=== PATIENT | male | born 1935 | race Caucasian/White ===

== ENCOUNTER 2020-01-24 10:41 | Emergency (ER) | payer OTHER ==
[2020-01-24 12:48] LABS: Urine Blood 2+ (NEG); Urine Glucose NEGATIVE (NEG); Urine Protein NEGATIVE (NEG); Urine Specific Gravity 1.015 (1.005-1.030); Urine pH 5.5 (5.0-7.0)
--- NOTE | 2020-01-24 13:05 | ER ---
Nurse's Notes [facility] Name: Greg Newsome Age: 84 yrs Sex: Male : 1935 Arrival Date: 01/24/2020 Time: 10:43 Bed 8 Private MD: Diagnosis: Encounter for fitting and adjustment of urinary device Presentation: 01/23 11:05 Chief complaint: Patient's son or daughter states: His urinary cath keeps falling out. ca1 It fell out twice since last night. He put it back last night, we want it replaced with a new one. I don't know why he has a bag. Has been there for years, I think he can't void on his own. Coronavirus screen: Proceed with normal triage. Patient denies a cough. Patient denies shortness of breath or difficulty breathing. Patient denies measured and/or subjective temperature greater than 100.4F prior to today's visit. Patient denies travel on a cruise ship or to a country the [facility] currently lists as an affected area. Patient denies contact with known and/or suspected case of COVID-19. Ebola Screen: Patient negative for fever greater than or equal to 101.5 degrees Fahrenheit, and additional compatible Ebola Virus Disease symptoms Patient denies exposure to infectious person. Patient denies travel to an Ebola-affected area in the 21 days before illness onset. No symptoms or risks identified at this time. Initial Sepsis Screen: Does the patient meet any 2 criteria? No. Patient's initial sepsis screen is negative. Does the patient have a suspected source of infection? No. Patient's initial sepsis screen is negative. Risk Assessment: Do you want to hurt yourself or someone else? Patient reports no desire to harm self or others. Onset of symptoms was January 24, 2020. 11:05 Method Of Arrival: Ambulatory ca1 11:05 Acuity: SHAD 4 ca1 Triage Assessment: 11:05 General: Appears in no apparent distress. comfortable, Behavior is calm, cooperative. bp Pain: Denies pain. EENT: No deficits noted. Neuro: No deficits noted. Cardiovascular: No deficits noted. Respiratory: No deficits noted. GI: No signs and/or symptoms were reported involving the gastrointestinal system. : Reports [facility] INDWELLING FLANAGAN, UNKNOWN REASON. Derm: No deficits noted. Musculoskeletal: No deficits noted. Historical: - Allergies: 11:12 No Known Allergies; ca1 - Home Meds: 11:12 Flomax 0.4 mg Oral cp24 1 cap once daily [Active]; Aspirin Oral [Active]; Metoprolol ca1 Tartrate Oral [Active]; - PMHx: 11:12 Hypertension; Hyperlipidemia; CAD; ca1 - PSHx: 11:12 Heart stents; Heart Surgery; ca1 - Immunization history:: Adult Immunizations up to date, Pneumococcal vaccine is up to date, Flu vaccine is up to date. - Social history:: Smoking status: Patient denies any tobacco usage or history of. Screenin:15 Abuse screen: Denies threats or abuse. Denies injuries from another. Nutritional bp screening: No deficits noted. Tuberculosis screening: No symptoms or risk factors identified. Fall Risk None identified. Assessment: 11:13 Reassessment: nidia Montiel, . ca1 13:13 Reassessment: PT D/C HOME VIA W/C WITH FAMILY, DX WITH URINARY DEVICE FITTING. bp Vital Signs: 11:05 BP 131 / 76; Pulse 56; Resp 16 S; Temp 97.6(TE); Pulse Ox 100% on R/A; Weight 56.7 kg ca1 (R); Height 5 ft. 6 in. (167.64 cm) (R); 13:12 BP 127 / 75; Pulse 63; Resp 17; Temp 97.8; Pulse Ox 100% ; bp 11:05 Body Mass Index 20.18 (56.70 kg, 167.64 cm) ca1 ED Course: 10:43 Patient arrived in ED. as 11:09 Triage completed. ca1 11:12 Arm band placed on right wrist. ca1 11:15 Deniz Angel, GITA is PHCP. pm1 11:15 Tyson Sorenson MD is Attending Physician. pm1 11:15 Patient has correct armband on for positive identification. Bed in low position. Call bp light in reach. Side rails up X2. 11:35 Christian Byrne, JOY is Primary Nurse. bp 11:50 Coud inserted, using sterile technique, 18 Fr. Returned cloudy urine. To gravity bp drainage. Patient tolerated well. 13:26 No provider procedures requiring assistance completed. Patient did not have IV access bp during this emergency room visit. Administered Medications: No medications were administered Outcome: 13:05 Discharge ordered by . pm1 13:25 Discharged to home via wheelchair, with family. bp 13:25 Condition: stable 13:25 Discharge instructions given to patient, family, Instructed on discharge instructions, follow up and referral plans. Demonstrated understanding of instructions, follow-up care. 13:26 Patient left the ED. bp Signatures: Marisol Dyer Patrick, SENIOR DATABASE ENGINEER SENIOR DATABASE ENGINEER pm1 Christian Byrne, RN RN bp Hermila Lepe RN RN ca1
--- NOTE | 2020-01-24 13:05 | EDPHYS ---
Physician Documentation [facility] Name: Greg Newsome Age: 84 yrs Sex: Male : 1935 Arrival Date: 01/24/2020 Time: 10:43 Bed 8 Private MD: Tyson Brown HPI: 01/23 11:36 This 84 yrs old Male presents to ER via Ambulatory with complaints of Problem pm1 With Urinary Catheter. 11:36 Onset: The symptoms/episode began/occurred last night. Associated signs and symptoms: pm1 Pertinent negatives: abdominal pain, diarrhea, dysuria, fever, vomiting. Modifying factors: The patient symptoms are alleviated by nothing, the patient symptoms are aggravated by nothing. Patient presents here for replacement of Vasquez catheter. Patient has been using a Vasquez catheter for multiple years. Last night and this AM his Vasquez catheter came out when he got out of bed. Patient was able to put the catheter back in by himself. No bleeding present. Historical: - Allergies: 11:12 No Known Allergies; ca1 - Home Meds: 11:12 Flomax 0.4 mg Oral cp24 1 cap once daily [Active]; Aspirin Oral [Active]; Metoprolol ca1 Tartrate Oral [Active]; - PMHx: 11:12 Hypertension; Hyperlipidemia; CAD; ca1 - PSHx: 11:12 Heart stents; Heart Surgery; ca1 - Immunization history:: Adult Immunizations up to date, Pneumococcal vaccine is up to date, Flu vaccine is up to date. - Social history:: Smoking status: Patient denies any tobacco usage or history of. ROS: 11:36 Constitutional: Negative for fever, chills, and weight loss, Cardiovascular: Negative pm1 for chest pain, palpitations, and edema, Respiratory: Negative for shortness of breath, cough, wheezing, and pleuritic chest pain, Abdomen/GI: Negative for abdominal pain, nausea, vomiting, diarrhea, and constipation, Back: Negative for injury and pain, : Negative for injury, bleeding, discharge, and swelling, MS/Extremity: Negative for injury and deformity, Skin: Negative for injury, rash, and discoloration, Neuro: Negative for headache, weakness, numbness, tingling, and seizure. Exam: 11:36 Constitutional: This is a well developed, well nourished patient who is awake, alert, pm1 and in no acute distress. Head/Face: Normocephalic, atraumatic. 11:36 Skin: Warm, dry with normal turgor. Normal color with no rashes, no lesions, and no evidence of cellulitis. MS/ Extremity: Pulses equal, no cyanosis. Neurovascular intact. Full, normal range of motion. 11:36 Cardiovascular: Exam negative for acute changes, Rate: normal, Rhythm: regular, Pulses: no pulse deficits are appreciated. 11:36 Respiratory: Exam negative for acute changes, respiratory distress, shortness of breath. 11:36 Abdomen/GI: Exam negative for acute changes, Palpation: abdomen is soft and non-tender, in all quadrants. 11:36 Back: pain, is absent, CVA tenderness, is absent. 11:36 Neuro: Exam negative for acute changes, Orientation: is normal, Mentation: is normal, Motor: is normal. Vital Signs: 11:05 BP 131 / 76; Pulse 56; Resp 16 S; Temp 97.6(TE); Pulse Ox 100% on R/A; Weight 56.7 kg ca1 (R); Height 5 ft. 6 in. (167.64 cm) (R); 13:12 BP 127 / 75; Pulse 63; Resp 17; Temp 97.8; Pulse Ox 100% ; bp 11:05 Body Mass Index 20.18 (56.70 kg, 167.64 cm) ca1 MDM: 11:15 Patient medically screened. pm1 12:27 Data reviewed: vital signs. Data interpreted: Pulse oximetry: on room air is 100 %. pm1 Interpretation: normal. 13:04 Counseling: I had a detailed discussion with the patient and/or guardian regarding: the pm1 historical points, exam findings, and any diagnostic results supporting the discharge/admit diagnosis, the need for outpatient follow up, to return to the emergency department if symptoms worsen or persist or if there are any questions or concerns that arise at home. 13:08 ED course: Collected urine sample for micro. 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 Patient just finished antibiotic treatment for UTI per daughter. Patient without any symptoms of UTI and I don't want to potential treat bacterial colonization of indwelling urinary catheter. 01/23 12:27 Order name: Urine Microscopic Only pm1 05/11 12:30 Order name: Urine Dipstick--Ancillary (enter results); Complete Time: 13:04 em1 01/23 11:32 Order name: Vasquez Leg Bag; Complete Time: 11:58 pm1 01/23 11:32 Order name: Vasquez; Complete Time: 11:58 pm1 01/23 12:12 Order name: Urine Dipstick-Ancillary (obtain specimen); Complete Time: 12:29 pm1 Administered Medications: No medications were administered Disposition: 20:25 Co-signature as Attending Physician, Tyson Sorenson MD I agree with the assessment and adriano plan of care. Disposition: 01/24/20 13:05 Discharged to Home. Impression: Encounter for fitting and adjustment of urinary device. - Condition is Stable. - Discharge Instructions: Vasquez Catheter Care, Adult. - Medication Reconciliation Form, Thank You Letter, Antibiotic Education, Prescription Opioid Use form. - Follow up: Emergency Department; When: As needed; Reason: Worsening of condition. Follow up: Private Physician; When: 2 - 3 days; Reason: Recheck today's complaints, Continuance of care, Re-evaluation by your physician. - Problem is new. - Symptoms have improved. Signatures: Dispatcher [employer] EDTyson Sharp MD MD cha Marinas, Patrick, SWITCHBOARD CLERK SWITCHBOARD CLERK pm1 Christian Byrne RN RN Hermila Stahl RN RN ca1 Corrections: (The following items were deleted from the chart) 13:26 13:05 01/24/2020 13:05 Discharged to Home. Impression: Encounter for fitting and bp adjustment of urinary device. Condition is Stable. Forms are Medication Reconciliation Form, Thank You Letter, Antibiotic Education, Prescription Opioid Use. Follow up: Emergency Department; When: As needed; Reason: Worsening of condition. Follow up: Private Physician; When: 2 - 3 days; Reason: Recheck today's complaints, Continuance of care, Re-evaluation by your physician. Problem is new. Symptoms have improved. pm1
[2020-01-24 13:38] LABS: Urine Bacteria <20 /HPF (NONE SEEN); Urine Culture Reflex Order REFLEXED
[2020-01-24 13:46] VITALS: BP 131/76; TEMP 97.6; O2SAT 100
== END 2020-01-24 13:26 | disposition home or self-care (01) ==
LOC: ER 10:41
DX: Z46.6 Encounter for fitting and adjustment of urinary device (principal); I10 Essential (primary) hypertension; E78.5 Hyperlipidemia, unspecified; Z79.82 Long term (current) use of aspirin; Z95.818 Presence of other cardiac implants and grafts
CPT/HCPCS: 81003; 81015; 87086; 87088; 99284

== ENCOUNTER 2022-03-06 14:52 | Inpatient (IN) | payer BC, OTHER ==
[2022-03-06 15:35] LABS: Hematocrit 37.3 % (39.6-49.0); Lymphocytes % 17.4 % (15.3-44.8); MPV 9.5 fL (7.6-11.3); RBC Red Blood Cell Count 4.05 M/uL (4.33-5.43)
[2022-03-06 15:59] LABS: Potassium 4.1 mmol/L (3.5-5.1); Troponin High Sensitivity 13.4 pg/mL (<58.9)
--- NOTE | 2022-03-06 15:59 | RAD REPORT ---
EXAM DESCRIPTION: RAD - Chest Single View - 03/06/2022 3:32 pm CLINICAL HISTORY: PALPITATIONS COMPARISON: No comparisons FINDINGS: Lines: None. Lungs: No evidence of edema or pneumonia. Pleural: No significant pleural effusions or pneumothorax. Cardiac: The heart size is within normal limits. Bones: No acute fractures. Other: IMPRESSION: No acute cardiopulmonary disease.
[2022-03-06 16:29] LABS: Blood Morphology Comment NOT SEEN (NOT SEEN); Platelet Estimate DECR; White Blood Cell Scan OK (OK)
--- NOTE | 2022-03-06 16:47 | ER ---
Nurse's Notes [facility] Name: Greg Newsome Age: 86 yrs Sex: Male : 1935 Arrival Date: 03/06/2022 Time: 15:05 Bed 24 Private MD: Diagnosis: Bradycardia, unspecified;Atrioventricular block, second degree Presentation: 03/06 15:06 Chief complaint: EMS states: LOW HR AT [facility]. [facility] 15:06 Coronavirus screen: Vaccine status: Patient reports receiving the 2nd dose of the covid bh1 vaccine. Client denies travel out of the [place] in the last 14 days. Ebola Screen: Patient negative for fever greater than or equal to 101.5 degrees Fahrenheit, and additional compatible Ebola Virus Disease symptoms. Initial Sepsis Screen: Does the patient meet any 2 criteria? No. Patient's initial sepsis screen is negative. Does the patient have a suspected source of infection? No. Patient's initial sepsis screen is negative. Risk Assessment: Do you want to hurt yourself or someone else? Patient reports no desire to harm self or others. Onset of symptoms was March 06, 2022. 15:06 Method Of Arrival: EMS: [facility] 15:06 Acuity: SHAD 3 [facility] Triage Assessment: 15:11 General: Appears in no apparent distress. Behavior is calm, cooperative, appropriate [facility] for age. Pain: Denies pain. Historical: - Allergies: 15:15 NKDA; bh1 - Home Meds: 15:15 aspirin 81 mg oral TbEC 1 tab once daily [Active]; metoprolol tartrate 100 mg oral tab bh1 1 tab 2 times per day [Active]; Flomax 0.4 mg Oral cp24 1 cap once daily [Active]; amlodipine 5 mg tab 1 tab once daily [Active]; atorvastatin 20 mg oral tab 1 tab once daily [Active]; cholecalciferol (vitamin D3) 50 mcg (2,000 unit) oral cap 1 tab daily [Active]; cyanocobalamin (vitamin B-12) 500 mcg oral tab 1 tab daily [Active]; finasteride 1 mg oral tab 1 tab once daily [Active]; omeprazole 20 mg Oral cpDR 1 cap once daily [Active]; - PMHx: 15:15 CAD; Hypertension; Hyperlipidemia; BPH; Anemia; URINARY RETENTION; GERD; bh1 - Immunization history:: Adult Immunizations up to date, Client reports receiving the 2nd dose of the Covid vaccine, Last tetanus immunization: up to date Pneumococcal vaccine is up to date, Flu vaccine is up to date. - Social history:: Smoking status: Patient denies any tobacco usage or history of. - Family history:: not pertinent. - Hospitalizations: : No recent hospitalization is reported. Screenin:12 Abuse screen: Denies threats or abuse. Nutritional screening: No deficits noted. [facility] Tuberculosis screening: No symptoms or risk factors identified. Fall Risk None identified. Assessment: 15:12 Reassessment: No changes from previously documented assessment. General: Appears in no [facility] apparent distress. Behavior is calm, cooperative, appropriate for age. Pain: Denies pain. Vital Signs: 15:06 BP 132 / 72; Pulse 38; Resp 18; Temp 98.3(O); Pulse Ox 100% on R/A; Weight 54.43 kg; [facility] Height 5 ft. 3 in. (160.02 cm); Pain 0/10; 15:32 BP 143 / 72; Pulse 34; Resp 18; Pulse Ox 100% on R/A; 1 16:00 BP 128 / 52; Pulse 33; Resp 18; Pulse Ox 97% on R/A; 1 16:00 BP 165 / 63; Pulse 36; Resp 18; Pulse Ox 100% on R/A; bh1 16:00 BP 184 / 47; Pulse 34; Resp 18; Pulse Ox 100% on R/A; 1 18:21 BP 123 / 66; Pulse 50; Resp 20; Pulse Ox 99% on R/A; 1 19:01 BP 138 / 70; Pulse 40; Resp 18; Pulse Ox 96% on R/A; 1 20:41 BP 142 / 64; Pulse 28; Resp 18; Pulse Ox 100% on R/A; 1 21:41 BP 139 / 57; Pulse 35; Resp 18; Pulse Ox 100% on R/A; 1 23:17 BP 143 / 60; Pulse 35; Resp 18; Temp 98.3(O); Pulse Ox 98% on R/A; 1 15:06 Body Mass Index 21.26 (54.43 kg, 160.02 cm) [facility] ED Course: 15:05 Patient arrived in ED. bh1 15:08 Gerardo Mtz MD is Attending Physician. rn 15:08 Triage completed. 1 15:09 Marianne Peraza, JOY is Primary Nurse. [facility] 15:12 Arm band placed on right wrist. [facility] 15:32 No apparent distress. Awaiting lab results, Awaiting radiology results. [facility] 15:32 Patient has correct armband on for positive identification. Bed in low position. Call [facility] light in reach. Side rails up X2. Adult w/ patient. front desk monitor on. Pulse ox on. NIBP on. 15:32 No provider procedures requiring assistance completed. Inserted saline lock: 20 gauge bh1 in left antecubital area, using aseptic technique. ,using aseptic technique. [employer] APPRENTICE PASTRY BY EMS Blood collected. 15:34 XRAY Chest (1 view) In Process Unspecified. EDMS 16:42 No apparent distress. Awaiting disposition. [facility] 16:45 Kirk Santana MD is Hospitalizing Provider. rn 17:49 No apparent distress. Resting quietly. Awaiting bed assignment. [facility] 17:57 COVID-19 SARS RT PCR (Document "Date of Onset" if Symptomatic) Sent. [facility] 18:22 No apparent distress. Resting quietly. Awaiting bed assignment. 1 19:01 No apparent distress. Resting quietly. Awaiting bed assignment. 1 20:42 Awaiting bed assignment. 1 21:42 No apparent distress. Resting quietly. Awaiting bed assignment. [facility] 23:16 Patient admitted, IV remains in place. [facility] Administered Medications: 18:18 Drug: Atropine 1 mg Route: IVP; Site: left antecubital; [facility] 18:19 Follow up: Response: No adverse reaction [facility] Medication: 15:12 VIS not applicable for this client. [facility] Outcome: 16:46 Decision to Hospitalize by Provider. rn 23:15 Admitted to Tele accompanied by tech, via stretcher, room 228, Report called to QUINCY Rosana ALONSO RN 23:15 Condition: stable 23:15 Demonstrated understanding of instructions. 03/07 00:02 Patient left the ED. [facility] Signatures: Dispatcher [employer] EDMS Gerardo Mtz MD MD rn Hicks, Barbara, JOY RN [facility] Corrections: (The following items were deleted from the chart) 03/06 15:22 15:15 Allergies: No Known Allergies; [place] [id number] 17:49 16:00 BP 195 / 6; Pulse 36bpm; Resp 18bpm; Pulse Ox 100% RA; [place] [id number]
--- NOTE | 2022-03-06 16:47 | EDPHYS ---
Physician Documentation [facility] Name: Greg Newsome Age: 86 yrs Sex: Male : 1935 Arrival Date: 03/06/2022 Time: 15:05 Bed 24 Private MD: ED Physician Gerardo Mtz HPI: 03/06 16:23 This 86 yrs old Male presents to ER via EMS with complaints of low heart rate. rn 16:23 EMS brought patient from clinic for low heart rate. No acute complaints. Per report, rn take metoprolol. NO syncope or chest pain. Has had stents before. . Onset: The symptoms/episode began/occurred at an unknown time. Severity of symptoms: At their worst the symptoms were moderate. The patient has not experienced similar symptoms in the past. The patient has been recently seen by a physician:. Historical: - Allergies: 15:15 NKDA; bh1 - Home Meds: 15:15 aspirin 81 mg oral TbEC 1 tab once daily [Active]; metoprolol tartrate 100 mg oral tab bh1 1 tab 2 times per day [Active]; Flomax 0.4 mg Oral cp24 1 cap once daily [Active]; amlodipine 5 mg tab 1 tab once daily [Active]; atorvastatin 20 mg oral tab 1 tab once daily [Active]; cholecalciferol (vitamin D3) 50 mcg (2,000 unit) oral cap 1 tab daily [Active]; cyanocobalamin (vitamin B-12) 500 mcg oral tab 1 tab daily [Active]; finasteride 1 mg oral tab 1 tab once daily [Active]; omeprazole 20 mg Oral cpDR 1 cap once daily [Active]; - PMHx: 15:15 CAD; Hypertension; Hyperlipidemia; BPH; Anemia; URINARY RETENTION; GERD; bh1 - Immunization history:: Adult Immunizations up to date, Client reports receiving the 2nd dose of the Covid vaccine, Last tetanus immunization: up to date Pneumococcal vaccine is up to date, Flu vaccine is up to date. - Social history:: Smoking status: Patient denies any tobacco usage or history of. - Family history:: not pertinent. - Hospitalizations: : No recent hospitalization is reported. ROS: 16:23 Constitutional: Negative for fever, chills, and weight loss, Eyes: Negative for injury, rn pain, redness, and discharge, Neck: Negative for injury, pain, and swelling, Cardiovascular: Negative for chest pain, palpitations, and edema, Respiratory: Negative for shortness of breath, cough, wheezing, and pleuritic chest pain, Abdomen/GI: Negative for abdominal pain, nausea, vomiting, diarrhea, and constipation, MS/Extremity: Negative for injury and deformity, Skin: Negative for injury, rash, and discoloration, Neuro: Negative for headache, weakness, numbness, tingling, and seizure. Exam: 16:42 Constitutional: This is a well developed, well nourished patient who is awake, alert, rn and in no acute distress. Head/Face: Normocephalic, atraumatic. Cardiovascular: Bradycardic, regular. No pulse deficits. Respiratory: No increased work of breathing, no retractions or nasal flaring. Abdomen/GI: Soft, non-tender Skin: Warm, dry MS/ Extremity: Pulses equal, no cyanosis. Neuro: Awake and alert, GCS 15 Vital Signs: 15:06 BP 132 / 72; Pulse 38; Resp 18; Temp 98.3(O); Pulse Ox 100% on R/A; Weight 54.43 kg; bh1 Height 5 ft. 3 in. (160.02 cm); Pain 0/10; 15:32 BP 143 / 72; Pulse 34; Resp 18; Pulse Ox 100% on R/A; bh1 16:00 BP 128 / 52; Pulse 33; Resp 18; Pulse Ox 97% on R/A; bh1 16:00 BP 165 / 63; Pulse 36; Resp 18; Pulse Ox 100% on R/A; bh1 16:00 BP 184 / 47; Pulse 34; Resp 18; Pulse Ox 100% on R/A; bh1 18:21 BP 123 / 66; Pulse 50; Resp 20; Pulse Ox 99% on R/A; bh1 19:01 BP 138 / 70; Pulse 40; Resp 18; Pulse Ox 96% on R/A; bh1 20:41 BP 142 / 64; Pulse 28; Resp 18; Pulse Ox 100% on R/A; bh1 21:41 BP 139 / 57; Pulse 35; Resp 18; Pulse Ox 100% on R/A; bh1 23:17 BP 143 / 60; Pulse 35; Resp 18; Temp 98.3(O); Pulse Ox 98% on R/A; bh1 15:06 Body Mass Index 21.26 (54.43 kg, 160.02 cm) [facility] MDM: 15:08 Patient medically screened. rn 16:16 ED course: Consulted with Dr. Gaytan, states likely 2nd degree AV block, no need to renal dialysis rn at this point, need to hold metoprolol. Pt still asymptomatic. . 16:42 Differential Diagnosis bradycardia, medication effect, heart block. Data reviewed: rn vital signs, nurses notes, lab test result(s), EKG, and as a result, I will admit patient. Counseling: I had a detailed discussion with the patient and/or guardian regarding: the historical points, exam findings, and any diagnostic results supporting the discharge/admit diagnosis. 03/06 15:18 Order name: Basic Metabolic Panel; Complete Time: 16:02 rn 03/06 15:18 Order name: CBC with Diff; Complete Time: 16:30 rn 03/06 15:18 Order name: Troponin HS; Complete Time: 16:02 rn 03/06 16:29 Order name: CBC Smear Scan; Complete Time: 16:30 [facility] 03/06 17:24 Order name: Magnesium [facility] 03/06 17:24 Order name: Thyroid Stimulating Hormone [facility] 03/06 17:24 Order name: CBC with Automated Diff [facility] 03/06 17:24 Order name: CBC with Automated Diff [facility] 03/06 17:24 Order name: Comprehensive Metabolic Panel [facility] 03/06 17:24 Order name: Comprehensive Metabolic Panel [facility] 03/06 17:24 Order name: Lipid Profile [facility] 03/06 17:24 Order name: Lipid Profile [facility] 03/06 17:24 Order name: Troponin High Sensitivity [facility] 03/06 17:24 Order name: Troponin High Sensitivity [facility] 03/06 15:18 Order name: XRAY Chest (1 view); Complete Time: 16:02 rn 03/06 15:18 Order name: EKG; Complete Time: 15:19 rn 03/06 15:18 Order name: Cardiac monitoring; Complete Time: 15: rn 03/06 15:18 Order name: EKG - Nurse/Tech; Complete Time: 15:45 rn 03/06 15:18 Order name: IV Saline Lock; Complete Time: 15: rn 03/06 15:18 Order name: Labs collected and sent; Complete Time: 15:31 rn 03/06 15:18 Order name: O2 Per Protocol; Complete Time: 15:22 rn 03/06 15:18 Order name: O2 Sat Monitoring; Complete Time: 15:22 rn 03/06 17:24 Order name: CONS Physician Consult EDOR 03/06 17:24 Order name: Heart Healthy EDMS 03/06 17:24 Order name: Troponin High Sensitivity [facility]OR 03/06 17:35 Order name: COVID-19 SARS RT PCR (Document "Date of Onset" if Symptomatic) bd 03/06 20:34 Order name: Magnesium EDOR Administered Medications: 18:18 Drug: Atropine 1 mg Route: IVP; Site: left antecubital; [facility] 18:19 Follow up: Response: No adverse reaction [facility] Disposition Summary: 03/06/22 16:46 Hospitalization Ordered Hospitalization Status: Observation rn Provider: Kirk Santana rn Location: Telemetry/MedSurg (observation) rn Condition: Stable rn Problem: new rn Symptoms: have improved rn Bed/Room Type: Standard rn Room Assignment: 228(03/06/22 22:46) Diagnosis - Bradycardia, unspecified rn - Atrioventricular block, second degree rn Forms: - Medication Reconciliation Form rn - SBAR form rn Signatures: Dispatcher [employer] EDOR Gerardo Mtz MD MD rn Garcia, Cindy RN RN Marianne Gaitan RN RN [facility] Corrections: (The following items were deleted from the chart) 15: 15:15 Allergies: No Known Allergies; [place] [id number] 16:42 16:23 Constitutional: Negative for fever, chills, and weight loss, rn rn 22:46 16:46 rn
[2022-03-06] MEDS ORDERED: ALBUTEROL 2.5 MG/3 ML NEB SOL NEB PRN (17:16)
[2022-03-06] MEDS ORDERED: MORPHINE 2 MG/ML SYR IV PRN (17:16)
[2022-03-06] MEDS ORDERED: ONDANSETRON 4 MG/2 ML VIAL IV PRN (17:16)
[2022-03-06] MEDS ORDERED: HYDRALAZINE HCL 20 MG/ML VIAL IV PRN (17:18)
[2022-03-06] MEDS ORDERED: ATROPINE SULFATE 1 MG/ML INJ IV PRN (17:18)
--- NOTE | 2022-03-06 17:27 | P.HP ---
Certification for Inpatient Patient admitted to: Observation With expected LOS: <2 Midnights Patient will require the following post-hospital care: None Practitioner: I am a practitioner with admitting privileges, knowledge of patient current condition, hospital course, and medical plan of care. Services: Services provided to patient in accordance with Admission requirements found in Title 42 Section 412.3 of the Code of Federal Regulations Patient History Date of Service: 03/06/22 Reason for admission: Bradycardia History of Present Illness: 86-year-old male with history of hypertension hyperlipidemia urinary retention, GERD history of CAD status post PCI in the past was seen at the [place] [facility] today was noticed to have heart rates in the 30s to 35. Patient was requested to go to the emergency room. Patient denies any chest pain. He denies any dizziness headache. He denies any similar symptoms in the past. On arrival in the ED his EKG was normal sinus rhythm with second-degree AV block. Patient is on metoprolol as part of his blood pressure regimen. Cardiology discussed with and recommended admission for observation. His blood pressure remained stable at 120s over 50s. To hold his metoprolol tonight and follow He has been admitted for bradycardia - Past Medical/Surgical History -: Hypertension -: Hyperlipidemia -: Urinary retention history -: CAD -: PCI's - Family History Family History: Reviewed- Non-Contributory - Social History Smoking Status: Never smoker Smoking therapy provided: No Patient receptive to therapy: No Alcohol use: No CD- Drugs: No Caffeine use: No Place of Residence: Home Review of Systems 10-point ROS is otherwise unremarkable Physical Examination - Physical Exam General: Alert, In no apparent distress, Oriented x3 HEENT: Atraumatic, Normocephalic, PERRLA Neck: Supple, 2+ carotid pulse no bruit, JVD not distended Respiratory: Clear to auscultation bilaterally, Normal air movement Cardiovascular: No edema, Normal pulses, Regular rate/rhythm, Normal S1 S2 Gastrointestinal: Normal bowel sounds, Soft and benign, Non-distended Musculoskeletal: No clubbing, No swelling Integumentary: No rashes, No breakdown Neurological: Normal speech, Normal strength at 5/5 x4 extr, Sensation intact, Cranial nerves 3-12 intact - Studies Laboratory Data (last 24 hrs) 03/06/22 15:29: WBC 5.9, Hgb 12.5 L, Hct 37.3 L, Plt Count 96 L 03/06/22 15:29: Sodium 141, Potassium 4.1, BUN 12, Creatinine 1.40 H, Glucose 99 Assessment and Plan - Problems (Diagnosis) (1) Bradycardia Current Visit: Yes Status: Acute (2) Bradycardia on ECG Current Visit: Yes Status: Acute (3) Bradycardia with 31-40 beats per minute Current Visit: Yes Status: Acute (4) Hypertension Current Visit: Yes Status: Acute (5) CAD (coronary artery disease) Current Visit: Yes Status: Acute - Advance Directives Does patient have a Living Will: No Does patient have a Durable POA for Healthcare: No Physician Review: Patient Assessed, Agree with Above Assessment and Plan Physician Review Additional Text: Impression Bradycardia with second-degree AV block Hypertension CAD history Hyperlipidemia Acute kidney injury Plan We will admit patient to observation Will hold metoprolol IV hydralazine as needed Can resume Norvasc if blood pressure elevated Obtain TSH, magnesium level Placed in telemetry If persistent bradycardia, may need pacemaker placement Cardiology consult in a.m. Start gentle IV fluid with normal saline, monitor creatinine trend Subcutaneous Lovenox for DVT prophylaxis Advance directivefull code
[2022-03-06] MEDS ORDERED: NA CHLORIDE 0.9% 1,000 ML IV SCH (18:00)
[2022-03-06] MEDS ORDERED: ENOXAPARIN 40 MG/0.4 ML SQ SCH (18:00)
[2022-03-06] MEDS ORDERED: Magnesium Sulfate 2gm IVPB 2 G/50 ML BAG IV ONE (19:45)
[2022-03-07 02:16] VITALS: BMI 21.7
[2022-03-07 04:52] LABS: Absolute Lymphocytes (CBC) 1.1 K/uL (0.7-4.9); Hematocrit 32.8 % (39.6-49.0); Lymphocytes % 21.8 % (15.3-44.8); MCV 89.9 fL (80-100); MPV 9.4 fL (7.6-11.3); RBC Red Blood Cell Count 3.65 M/uL (4.33-5.43)
[2022-03-07 05:17] LABS: Bilirubin Total 0.4 mg/dL (0.2-1.0); Magnesium 2.3 mg/dL (1.8-2.4); Potassium 3.7 mmol/L (3.5-5.1); Protein, Total 6.3 g/dL (6.4-8.2)
[2022-03-07] MEDS ORDERED: PANTOPRAZOLE 40MG TABLET PO SCH (07:30)
--- NOTE | 2022-03-07 08:47 | P.CNS ---
Date of Consult: 03/07/22 Reason for Consult: Hemoptysis Chief Complaint: Hemoptysis History of Present Illness: Patient is 86 years of age admitted with bradycardia and hemoptysis never smoked denies any fever or chills history of bradycardia Allergies No Known Allergies Allergy (Verified 03/06/22 23:02) Home Medications: Amlodipine Besylate 5 mg PO DAILY 03/07/22 Aspirin 81 mg PO DAILY 03/07/22 Atorvastatin Calcium 20 mg PO DAILY 03/07/22 Cholecalciferol (Vitamin D3) [Vitamin D3] 2,000 unit PO DAILY 03/07/22 Cyanocobalamin (Vitamin B-12) [Vitamin B-12] 500 mcg PO DAILY 03/07/22 Finasteride 5 mg PO DAILY 03/07/22 Folic Acid 1 mg PO DAILY 03/07/22 Metoprolol Tartrate 0.5 tab PO BID 03/07/22 Omeprazole 20 mg PO DAILY 03/07/22 Tamsulosin [Flomax*] 0.4 mg PO BEDTIME 03/07/22 - Past Medical/Surgical History Diabetic: No -: Hypertension -: Hyperlipidemia -: Urinary retention history -: CAD -: PCI's - Social History Alcohol use: No CD- Drugs: No Caffeine use: No Place of Residence: Home Review of Systems 10-point ROS is otherwise unremarkable General: Weakness Respiratory: Hemoptysis Physical Examination Temp Pulse Resp BP Pulse Ox 97.9 F 31 L 16 157/55 H 97 03/07/22 08:00 03/07/22 08:00 03/07/22 08:00 03/07/22 08:00 03/07/22 08:00 General: Alert, In no apparent distress, Oriented x3 HEENT: Atraumatic Respiratory: Clear to auscultation bilaterally, Diminished Cardiovascular: No edema, Normal pulses Laboratory Data (last 24 hrs) 03/06/22 15:29: Magnesium 1.6 L 03/06/22 15:29: WBC 5.9, Hgb 12.5 L, Hct 37.3 L, Plt Count 96 L 03/06/22 15:29: Sodium 141, Potassium 4.1, BUN 12, Creatinine 1.40 H, Glucose 99 - Problems (1) Hemoptysis Current Visit: Yes Status: Acute Plan: Patient is 86 years of age admitted with bradycardia and hemoptysis he is never smoked labs reviewed and unremarkable he is not taking any anticoagulants chest x-ray is normal CT scan of the chest is pending
[2022-03-07] MEDS ORDERED: ASPIRIN EC 81 MG TAB PO SCH (09:00)
[2022-03-07] MEDS: ZINC SULFATE 220 MG CAP PO SCH (09:19)
--- NOTE | 2022-03-07 10:08 | RAD REPORT ---
EXAM DESCRIPTION: CT - Thorax W/ Con - 03/07/2022 9:45 am CLINICAL HISTORY: Lung mass COMPARISON: March 06, 2022 TECHNIQUE: Computed axial tomography of the chest was obtained. 100 cc Isovue 300 was administered i ntravenously. All CT scans are performed using dose optimization technique as appropriate and may include automated exposure control or mA/KV adjustment according to patient size. FINDINGS: 16 millimeter calcified granuloma right upper lobe. Minimal surrounding opacities. Small cyst right upper lobe. Left lung is clear Calcified mediastinal and hilar lymph nodes. The ascending thoracic aorta is ectatic Small right pleural effusion. A pericardial effusion is not seen. Splenic granulomas IMPRESSION: Calcified mediastinal and hilar lymph nodes. Calcified right lung granuloma. Patient nelson graham has had prior granulomatous infection Small right pleural effusion
--- NOTE | 2022-03-07 14:59 | P.PN ---
Subjective Date of Service: 03/07/22 Chief Complaint: Hemoptysis Subjective: New changes (Today, noted with hemoptysis this morning Denies shortness of breath Evaluated by pulmonary) Physical Examination - Vital Signs Temperature: 97.8 F Blood Pressure: 132/51 Pulse: 29 Respirations: 16 Pulse Ox (%): 98 - Studies Laboratory Data (last 24 hrs) 03/06/22 15:29: Magnesium 1.6 L 03/06/22 15:29: WBC 5.9, Hgb 12.5 L, Hct 37.3 L, Plt Count 96 L 03/06/22 15:29: Sodium 141, Potassium 4.1, BUN 12, Creatinine 1.40 H, Glucose 99 Assessment And Plan - Current Problems (Diagnosis) (1) Bradycardia Current Visit: Yes Status: Acute (2) Bradycardia on ECG Current Visit: Yes Status: Acute (3) Bradycardia with 31-40 beats per minute Current Visit: Yes Status: Acute (4) Hypertension Current Visit: Yes Status: Acute (5) CAD (coronary artery disease) Current Visit: Yes Status: Acute Physician Review: Patient Assessed, Agree with Above Assessment and Plan Physician Review Additional Text: CT lung shows old granulomatous changes but no new acute infiltrate Physical Exam General: Alert, In no apparent distress, Oriented x3 HEENT: Atraumatic, Normocephalic, PERRLA Neck: Supple, 2+ carotid pulse no bruit, JVD not distended Respiratory: Cardiovascular: No edema, Normal pulses, Regular rate/rhythm, Normal S1 S2 Gastrointestinal: Normal bowel sounds, Soft and benign, Non-distended Musculoskeletal: No clubbing, No swelling Integumentary: No rashes, No breakdown Neurological: Normal speech, Normal strength at 5/5 x4 extr, Sensation intact, Cranial nerves 3-12 intact Impression Bradycardia with second-degree AV block Hypertension CAD history Hyperlipidemia Acute kidney injury Transient hemoptysisunclear etiology, may be due to bronchitis Plan Will start empirical antibiotics per pulmonary See persistent bradycardia, discussed with cardiology, since asymptomatic, option of conservative option versus pacemaker placement Will discuss with family regarding this Patient discussed with, he is agreeable with pacemaker Intermittent blood pressure, continue to monitor IV hydralazine as needed TSH controlled Low magnesium, status post repleted Subcutaneous Lovenox for DVT prophylaxis Advance directivefull code
--- NOTE | 2022-03-07 15:26 | CON ---
Date of Consultation: 03/07/2022 Reason For Consultation: Bradycardia. History Of Present Illness: Mr. Newsome was sent to the emergency room because of low heart rate. He was asymptomatic when he was in the emergency room. 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 He has a narrow complex, heart rate was in 30s, but no sy mptoms. The patient did have some hemoptysis and a CT scan did not show any acute process. The code status is still undetermined. The patient has significant dementia, gastroesophageal reflux disease , history of anemia, BPH, hypertension, dyslipidemia, CAD status post PCI. Allergies: NONE. Review of Systems: Negative. Social History: Negative. Family History: Negative. Medications: Include metoprolol 100 b.i.d., aspirin, Flomax, amlodipine, Lipitor, finasteride, and o meprazole. Physical Examination: Vital signs: Heart rate was 38, blood pressure 132/72, afebrile, pulse ox was 100% on room air. HEENT: Negative. Neck: Supple with no bruit. Chest: Clear to auscultation and percussion. Cardiac: Revealed a regular rhythm and rate without any murmurs, gallops, or rubs. Abdomen: Benign. Extremities: Revealed no clubbing, cyanosis, or edema. Diagnostic Data: EKG circuit showed second-degree AV block, most likely type 1, could be also high-d egree type 2. Chest x-ray was rather unremarkable. CT scan was rather unremarkable. Echocardiogram is pending. Impression And Plan: 1.Bradycardia type 1 most likely, may be secondary to beta-blockers. I would definitely hold his me toprolol. 2.Hemoptysis. CT of the chest done. Dr. Argueta consulted. 3.History of hypertension. 4.History of dyslipidemia. 5.History of coronary artery disease, status post stent. 6.Dementia. 7.Gastroesophageal reflux disease. I think we need to get an echocardiogram. I think we need to ho ld the metoprolol at least for a day or 2 or even more before we decide on a pacemaker. I think we n eed to discuss his code status with the family before send him for a pacemaker that may or may not be necessary at this point, if his metoprolol wears off and his rhythm improved, I would definitely sit tight and and observe. If he develops symptoms of dizziness or presyncope, definitely a pacemaker w ould be indicated. I will discuss the case further with admitting physician. MORRIS Voice ID: [id number] Report ID: [id number]
[2022-03-07] MEDS: levoFLOXacin 500 MG TAB PO SCH (18:08)
[2022-03-08 06:02] LABS: Hematocrit 32.4 % (39.6-49.0); Lymphocytes % 18.2 % (15.3-44.8); MCV 91.9 fL (80-100); MPV 9.7 fL (7.6-11.3); RBC Red Blood Cell Count 3.53 M/uL (4.33-5.43)
[2022-03-08 06:09] LABS: Albumin 2.9 g/dL (3.4-5.0); Bilirubin Total 0.3 mg/dL (0.2-1.0); Potassium 3.9 mmol/L (3.5-5.1); Protein, Total 6.4 g/dL (6.4-8.2)
--- NOTE | 2022-03-08 07:58 | ECHO ---
HEIGHT: 5 ft 3 in WEIGHT: 122 lb 12.8 oz DATE OF STUDY: 03/07/[address]: Jeb Gaytan MD 2-DIMENSIONAL: YES M.MODE: YES DOPPLER: YES COLOR FLOW: YES TDS: PORTABLE: YES DEFINITY: BUBBLE STUDY: DIAGNOSIS: AV BLOCK CARDIAC HISTORY: CATHERIZATION: SURGERY: PROSTHETIC VALVE: PACEMAKER: MEASUREMENTS (cm) DIASTOLIC (NORMALS) SYSTOLIC (NORMALS) IVSd 1.0 (0.6-1.2) LA Diam 3.1 (1.9-4.0) LVEF 60-65% LVIDd 4.3 (3.5-5.7) LVIDs 2.1 (2.0-3.5) %FS 51% LVPWd 1.0 (0.6-1.2) Ao Diam 3.4 (2.0-3.7) 2 DIMENSIONAL ASSESSMENT: RIGHT ATRIUM: NORMAL LEFT ATRIUM: NORMAL RIGHT VENTRICLE: NORMAL LEFT VENTRICLE: NORMAL TRICUSPID VALVE: MODERATE TRICUSPID REGURGITATION MITRAL VALVE: MILD MITRAL REGURGITATION PULMONIC VALVE: NORMAL AORTIC VALVE: CALCIFIED VALVE PERICARDIAL EFFUSION: NONE AORTIC ROOT: NORMAL LEFT VENTRICULAR WALL MOTION: NORMAL DOPPLER/COLOR FLOW: MILD MITRAL REGURGITATION AND TRICUSPID REGURGITATION COMMENTS: NORMAL LEFT VENTRICULAR EJECTION FRACTION 60-65%. NORMAL WALL MOTION. CALCIFIED AORTIC VALVE, NO AORTIC STENOSIS. MILD MITRAL REGURGITATION. MODERATE TRICUSPID REGURGITATION. TECHNOLOGIST: ERICK WHITE
[2022-03-08] MEDS ORDERED: FOLIC ACID 1 MG TABLET PO SCH (09:00)
[2022-03-08] MEDS ORDERED: ASPIRIN 81 MG CHEWABLE TABLET PO SCH (09:00)
[2022-03-08] MEDS ORDERED: FINASTERIDE 5 MG TAB PO SCH (09:00)
[2022-03-08] MEDS ORDERED: PANTOPRAZOLE 40MG TABLET PO SCH (09:00)
[2022-03-08] MEDS ORDERED: HOME MED 1 EA UNK (Omeprazole [Omeprazole] 20 MG Capsule.Dr) PO SCH (09:00)
--- NOTE | 2022-03-08 10:09 | P.PN ---
Subjective Date of Service: 03/08/22 Chief Complaint: Hemoptysis Subjective: No new changes, Improving, Doing well Physical Examination - Vital Signs Temperature: 97.3 F Blood Pressure: 127/40 Pulse: 30 Respirations: 16 Pulse Ox (%): 97 Assessment And Plan - Current Problems (Diagnosis) (1) Bradycardia Current Visit: Yes Status: Acute (2) Bradycardia on ECG Current Visit: Yes Status: Acute (3) Bradycardia with 31-40 beats per minute Current Visit: Yes Status: Acute (4) Hypertension Current Visit: Yes Status: Acute (5) CAD (coronary artery disease) Current Visit: Yes Status: Acute Discharge Plan: Home Physician Review: Patient Assessed, Agree with Above Assessment and Plan Physician Review Additional Text: CT lung shows old granulomatous changes but no new acute infiltrate Physical Exam General: Alert, In no apparent distress, Oriented x3 HEENT: Atraumatic, Normocephalic, PERRLA Neck: Supple, 2+ carotid pulse no bruit, JVD not distended Respiratory: Cardiovascular: No edema, Normal pulses, Regular rate/rhythm, Normal S1 S2 Gastrointestinal: Normal bowel sounds, Soft and benign, Non-distended Musculoskeletal: No clubbing, No swelling Integumentary: No rashes, No breakdown Neurological: Normal speech, Normal strength at 5/5 x4 extr, Sensation intact, Cranial nerves 3-12 intact Impression Bradycardia with second-degree AV block Hypertension CAD history Hyperlipidemia Acute kidney injury Transient hemoptysisunclear etiology, may be due to bronchitis Plan Continue empirical antibiotics per pulmonary Patient remained asymptomatic despite low heart rate in the 20s to 30s Cardiology agreeable to transfer for pacemaker placement now Patient and family has been discussed with and they are agreeable to decision Will initiate plan for transfer Continue as needed atropine as needed IV hydralazine as needed TSH controlled Low magnesium, status post repleted Subcutaneous Lovenox for DVT prophylaxis Advance directivefull code
--- NOTE | 2022-03-08 10:13 | P.DS ---
Admission Date: 03/06/22 Discharge Date: 03/08/22 Disposition: TRANSFER TO [facility] Discharge Condition: SERIOUS Reason for Admission: Hemoptysis - Problems (1) Bradycardia Current Visit: Yes Status: Acute (2) Bradycardia on ECG Current Visit: Yes Status: Acute (3) Bradycardia with 31-40 beats per minute Current Visit: Yes Status: Acute (4) Hypertension Current Visit: Yes Status: Acute (5) CAD (coronary artery disease) Current Visit: Yes Status: Acute Brief History of Present Illness: 86-year-old male with history of hypertension hyperlipidemia urinary retention, GERD history of CAD status post PCI in the past was seen at the [facility] today was noticed to have heart rates in the 30s to 35. Patient was requested to go to the emergency room. Patient denies any chest pain. He denies any dizziness headache. He denies any similar symptoms in the past. On arrival in the ED his EKG was normal sinus rhythm with second-degree AV block. Patient is on metoprolol as part of his blood pressure regimen. Cardiology discussed with and recommended admission for observation. His blood pressure remained stable at 120s over 50s. To hold his metoprolol tonight and follow He has been admitted for bradycardia Hospital Course: Patient admitted for asymptomatic bradycardia. His heart rate during hospitalization remain in the 20s to low 30s. He is metoprolol was held at admission and was not restarted. He received intermittent doses of atropine as needed when heart rate drops to 28. He got a total of 2 doses. He remained asymptomatic for the safe and conversant. Family/daughters discussed with as well as patient and the agreeable to option of pacemaker placement. Of note on admission patient had 1 bout of noted hemoptysis. He denies any prior cough. A CT of the chest shows old granulomatous areas of scarring but no acute pulmonary lesions. Patient was discussed with pulmonary and recommended empirical antibiotics. There was no recurrence of the hemoptysis or any bleed. Of note his platelet count was 85 and his Lovenox was held. Patient will be transferred for pacemaker placement now since persistent bradycardia despite no metoprolol for more than 48 hours - Physical Exam General: Oriented x3 HEENT: Atraumatic, Normocephalic, PERRLA Neck: Supple, 2+ carotid pulse no bruit, JVD not distended Respiratory: Clear to auscultation bilaterally, Normal air movement Cardiovascular: Normal pulses, Regular rate/rhythm, Normal S1 S2 Gastrointestinal: Normal bowel sounds, Soft and benign, Non-distended Musculoskeletal: No clubbing, No swelling Integumentary: No breakdown, No significant lesion Neurological: Normal gait, Normal speech, Normal strength at 5/5 x4 extr, Sensation intact, Cranial nerves 3-12 intact External genitalia: Edema Impression Symptomatic anemiastatus post PRBC x2 units, improving Presumed lower GI bleed Chronic troponinemia due to demand mediated ischemia from CHF and anemia Acute kidney injury Baseline CKD stage III Diastolic CHFlast echo with EF of 57% COPD 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 Vital Signs/Physical Exam: Temp Pulse Resp BP Pulse Ox 97.3 F 30 L 16 127/40 L 97 03/08/22 10:09 03/08/22 10:09 03/08/22 10:09 03/08/22 10:09 03/08/22 10:09 Laboratory Data at Discharge: WBC 5.5 K/uL (4.3-10.9) D 03/08/22 05:12 Hgb 11.3 g/dL (13.6-17.9) L 03/08/22 05:12 Hct 32.4 % (39.6-49.0) L 03/08/22 05:12 Plt Count 91 K/uL (152-406) L 03/08/22 05:12 Sodium 142 mmol/L (136-145) 03/08/22 05:12 Potassium 3.9 mmol/L (3.5-5.1) 03/08/22 05:12 BUN 19 mg/dL (7-18) H 03/08/22 05:12 Creatinine 1.47 mg/dL (0.55-1.3) H 03/08/22 05:12 Glucose 109 mg/dL (74-106) H 03/08/22 05:12 Magnesium Cancelled 03/07/22 19:45 Total Bilirubin 0.3 mg/dL (0.2-1.0) 03/08/22 05:12 AST 10 U/L (15-37) L 03/08/22 05:12 ALT 17 U/L (12-78) 03/08/22 05:12 Alkaline Phosphatase 70 U/L (45-117) 03/08/22 05:12 Triglycerides 60 mg/dL (<150) 03/07/22 03:50 Cholesterol 81 mg/dL (<200) 03/07/22 03:50 HDL Cholesterol 46 mg/dL (40-60) 03/07/22 03:50 Cholesterol/HDL Ratio 1.76 03/07/22 03:50 Home Medications: Amlodipine Besylate 5 mg PO DAILY 03/07/22 Aspirin 81 mg PO DAILY 03/07/22 Atorvastatin Calcium 20 mg PO DAILY 03/07/22 Cholecalciferol (Vitamin D3) [Vitamin D3] 2,000 unit PO DAILY 03/07/22 Cyanocobalamin (Vitamin B-12) [Vitamin B-12] 500 mcg PO DAILY 03/07/22 Finasteride 5 mg PO DAILY 03/07/22 Folic Acid 1 mg PO DAILY 03/07/22 Metoprolol Tartrate 0.5 tab PO BID 03/07/22 Omeprazole 20 mg PO DAILY 03/07/22 Tamsulosin [Flomax*] 0.4 mg PO BEDTIME 03/07/22 Diet: Regular Followup: NONE,NONE [Primary Care Provider] - Time spent managing pt's care (in minutes): 35
[2022-03-08] MEDS: levoFLOXacin 500 MG TAB PO SCH (10:37)
[2022-03-08] MEDS: ZINC SULFATE 220 MG CAP PO SCH (10:37)
[2022-03-08 12:41] VITALS: BP 145/61; TEMP 97.6
[2022-03-08 15:06] VITALS: O2SAT 96
--- NOTE | 2022-03-09 17:37 | EKG ---
Test Date: 2022-03-06 Test Time: 15:31:57 Italian Lecturer: KAT MEASUREMENT RESULTS: Intervals: Rate: 34 DC: 142 QRSD: 140 QT: 538 QTc: 404 [place]: P: 84 DC: 142 QRS: 14 T: 66 INTERPRETIVE STATEMENTS: Marked sinus bradycardia Right bundle branch block Abnormal ECG No previous ECG available for comparison Electronically Signed On 03-09-22 17:31:51 CDT by Richie Colunga
== END 2022-03-08 16:00 | disposition short-term general hospital (02) | DRG 309 ==
LOC: ER 14:52 → ERHOLD 17:17 → 2ND 23:43 → OBSVTOIN 03-08 10:53
PROVIDERS: ADMIT Internal Medicine; ATTEND Internal Medicine
DX: R00.1 Bradycardia, unspecified (principal); N17.9 Acute kidney failure, unspecified; R04.2 Hemoptysis; K92.2 Gastrointestinal hemorrhage, unspecified; I13.0 Hypertensive heart and chronic kidney disease with heart failure and stage 1 through stage 4 chronic kidney disease, or unspecified chronic kidney disease; I50.32 Chronic diastolic (congestive) heart failure; I25.10 Atherosclerotic heart disease of native coronary artery without angina pectoris; J40 Bronchitis, not specified as acute or chronic; E78.5 Hyperlipidemia, unspecified; N18.30 Chronic kidney disease, stage 3 unspecified; D64.9 Anemia, unspecified; K21.9 Gastro-esophageal reflux disease without esophagitis; I44.1 Atrioventricular block, second degree; F03.90 Unspecified dementia, unspecified severity, without behavioral disturbance, psychotic disturbance, mood disturbance, and anxiety; Z95.5 Presence of coronary angioplasty implant and graft; Z20.822 Contact with and (suspected) exposure to COVID-19
CPT/HCPCS: 36415; 71045; 71260; 80048; 80053; 80061; 83735; 84443; 84484; 85025; 93005; 93306; 96374; 99285; G0378; J0461; J1650; J3475; J7030; Q9967; U0003